=== PATIENT | female | born 1990 | race Caucasian/White ===

== ENCOUNTER → 2017-04-01 | Outpatient (CLI) | payer BC ==
--- NOTE | 2017-06-03 15:21 | RAD ---
Patient Location : OUT-PATIENT Indications Varicose Veins Grayscale images of the bilateral lower extremity saphenofemoral junctions and limited evaluation of the great saphenous veins on goldsmith scale images does not reveal any evidence of thrombus. On the right the great saphenous vein and small saphenous veins do not show any evidence of reflux. On the left, the great saphenous vein has a reflux of 4.4 seconds throughout its course. The great saphenous vein measures approximately 9 mm in greatest dimension. The left small saphenous vein does not have any significant reflux. Critical Notification Critical Value: No <Conclusion> 1. Positive for reflux in the left greater saphenous vein. Signed by : Jovany Monique, Electronically Approved : 04/02/2017 15:13:33 KRYSTEN
== END | disposition home or self-care (01) ==
LOC: US 09:51
PROVIDERS: ATTEND Internal Medicine Cardiovascular Disease
DX: I83.93 Asymptomatic varicose veins of bilateral lower extremities (principal); K21.9 Gastro-esophageal reflux disease without esophagitis
CPT/HCPCS: 93970

== ENCOUNTER → 2017-06-04 | Outpatient (CLI) | payer BC ==
--- NOTE | 2017-06-05 07:43 | RAD ---
MR#: [id number] Date of Study: 06/04/2017 Ordering Physician: STANLEY BYERS, Referring Physician: STANLEY BYERS, Tech: Ya Soria RDMS, RVT, RTR APPROVED REPORT Patient Location: OUT-PATIENT Indications Grayscale images of the left common femoral vein and saphenofemoral junction do not reveal any eviden ce of thrombus. The left great saphenous vein appears to be noncompressible with thrombus consistent with recent history of ablation. The superficial femoral vein, popliteal veins and below-knee veins do not reveal any evidence of thro mbus and appear to be compressible with normal flow. Critical Notification Critical Value: No <Conclusion> 1. Negative for DVT in the left lower extremity. Status post successful great saphenous vein ablation . Signed by : Jovany Monique, Electronically Approved : 06/05/2017 07:42:54
== END | disposition home or self-care (01) ==
LOC: US 10:29
PROVIDERS: ATTEND Internal Medicine Cardiovascular Disease
DX: I87.2 Venous insufficiency (chronic) (peripheral) (principal)
CPT/HCPCS: 93971

== ENCOUNTER 2017-12-08 22:32 | Emergency (ER) | payer BC ==
[~2017-12-08] VITALS: Ht 167.6 cm; Wt 61.5 kg
--- NOTE | 2017-12-08 22:40 | ED.ADGEN ---
Past History Past Medical History: UTI, Other Adult General Chief Complaint Chief Complaint ".. I just feel bad all over.. chills.. fever, achy... sore throat... " HPI HPI Patient is a 27 year old female who presents with above hx and complaints of fever, chills, myalgia, arthralgia and sore throat. Pt. is normally healthy. No recent travel. Son recently had a viral illness. Patient denies any history of immunosuppression. Review of Systems Review of Systems Constitutional: History of fever or chills [] Eyes: Denies change in visual acuity, redness, or eye pain [] HENT: History of mild nasal congestion, severe sore throat , otitis Respiratory: Denies cough or shortness of breath [] Cardiovascular: No additional information not addressed in HPI [] GI: Denies abdominal pain, nausea, vomiting, bloody stools or diarrhea [] : Denies dysuria or hematuria [] Musculoskeletal: Denies back pain or joint pain [] Integument: Denies rash or skin lesions [] Neurologic: Denies headache, focal weakness or sensory changes [] Endocrine: Denies polyuria or polydipsia [] All other systems were reviewed and found to be within normal limits, except as documented in this note. Family History Family History Son recently sick Current Medications Current Medications Current Medications Medications (Trade) Dose Ordered Sig/Nina Start Time Stop Time Status Last Admin Dose Admin Ceftriaxone Sodium 1 gm/ Sodium Chloride 50 ml @ 100 mls/hr 1X ONCE 12/09/17 00:30 12/09/17 00:59 UNV Ceftriaxone Sodium (Rocephin Im) 1 gm 1X ONCE 12/09/17 00:15 12/09/17 00:16 DC Ceftriaxone Sodium (Rocephin) 1 gm ONCE ONCE 12/09/17 00:30 12/09/17 00:31 DC 12/09/17 00:36 1 GM Diphenhydramine HCl (Benadryl) 25 mg 1X ONCE 12/09/17 00:15 12/09/17 00:16 DC 12/09/17 00:36 25 MG Hydrocodone Bitartrate/ Ibuprofen (Vicoprofen 7.5-200) 2 tab 1X ONCE 12/09/17 00:15 12/09/17 00:16 DC 12/09/17 00:36 2 TAB Lactated Ringer's 1,000 ml @ 1,000 mls/hr Q1H 12/08/17 23:30 12/09/17 00:29 DC 12/08/17 23:51 1,000 MLS/HR Prednisone (Prednisone) 60 mg 1X ONCE 12/09/17 00:30 12/09/17 00:31 DC 12/09/17 00:36 60 MG Allergies Allergies Allergies Coded Allergies Type Severity Reaction Last Updated Verified No Known Drug Allergies 12/08/17 No Physical Exam Physical Exam Constitutional: Well developed, well nourished, in acute distress, non-toxic appearance. [] HENT: Normocephalic, atraumatic, bilateral external ears normal, oropharynx moist, ejected pharynx no oral exudates, nose mildly injected turbinates, injected TMs Eyes: PERRLA, EOMI, conjunctiva normal, no discharge. [] Neck: Normal range of motion, no tenderness, supple, no stridor. [] Adenopathy anterior cervical chain Cardiovascular:Heart rate regular rhythm, no murmur [] Lungs & Thorax: Bilateral breath sounds clear to auscultation [] Abdomen: Bowel sounds normal, soft, no tenderness, no masses, no pulsatile masses. [] Skin: Warm, dry, no erythema, no rash. [] Back: No tenderness, no CVA tenderness. [] Extremities: No tenderness, no cyanosis, no clubbing, ROM intact, no edema. [] Neurologic: Alert and oriented X 3, normal motor function, normal sensory function, no focal deficits noted. [] Psychologic: Affect anxious, judgement normal, mood normal. [] Current Patient Data Lab Results Laboratory Tests Test 12/08/17 22:15 12/08/17 22:59 12/08/17 23:34 12/08/17 23:47 POC Urine HCG, Qualitative hcg negative (Negative) Urine Collection Type Unknown Urine Color Yellow Urine Clarity Clear Urine pH 5.5 Urine Specific [place] 1.020 Urine Protein Neg (NEG-TRACE) Urine Glucose (UA) Neg mg/dL (NEG) Urine Ketones (Stick) Neg mg/dL (NEG) Urine Blood Mod (NEG) Urine Nitrite Neg (NEG) Urine Bilirubin Neg (NEG) Urine Urobilinogen Dipstick 1 mg/dL (0.2 mg/dL) Urine Leukocyte Esterase Trace (NEG) Urine RBC Occ /HPF (0-2) Urine WBC 1-4 /HPF (0-4) Urine Squamous Epithelial Cells None /LPF Urine Bacteria 0 /HPF (0-FEW) Urine Opiates Screen Neg (NEG) Urine Methadone Screen Neg (NEG) Urine Barbiturates Neg (NEG) Urine Phencyclidine Screen Neg (NEG) Urine Amphetamine/Methamphetamine Neg (NEG) Urine Benzodiazepines Screen Neg (NEG) Urine Cocaine Screen Neg (NEG) Urine Cannabinoids Screen Neg (NEG) Urine Ethyl Alcohol Neg (NEG) Group A Streptococcus Rapid Positive (NEGATIVE) White Blood Count 10.5 x10^3/uL (4.0-11.0) Red Blood Count 4.34 x10^6/uL (3.50-5.40) Hemoglobin 14.2 g/dL (12.0-15.5) Hematocrit 39.7 % (36.0-47.0) Mean Corpuscular Volume 91 fL (79-100) Mean Corpuscular Hemoglobin 33 pg (25-35) Mean Corpuscular Hemoglobin Concent 36 g/dL (31-37) Red Cell Distribution Width 13.6 % (11.5-14.5) Platelet Count 135 x10^3/uL (140-400) L Neutrophils (%) (Auto) 89 % (31-73) H Lymphocytes (%) (Auto) 5 % (24-48) L Monocytes (%) (Auto) 5 % (0-9) Eosinophils (%) (Auto) 0 % (0-3) Basophils (%) (Auto) 0 % (0-3) Neutrophils # (Auto) 9.3 x10^3uL (1.8-7.7) H Lymphocytes # (Auto) 0.5 x10^3/uL (1.0-4.8) L Monocytes # (Auto) 0.5 x10^3/uL (0.0-1.1) Eosinophils # (Auto) 0.0 x10^3/uL (0.0-0.7) Basophils # (Auto) 0.0 x10^3/uL (0.0-0.2) Erythrocyte Sedimentation Rate Pending D-Dimer (Marjorie) 0.51 mg/L (0.00-0.50) H Sodium Level 137 mmol/L (136-145) Potassium Level 3.5 mmol/L (3.5-5.1) Chloride Level 102 mmol/L (98-107) Carbon Dioxide Level 27 mmol/L (21-32) Anion Gap 8 (6-14) Blood Urea Nitrogen 16 mg/dL (7-20) Creatinine 1.0 mg/dL (0.6-1.0) Estimated GFR (Cockcroft-Gault) 65.6 Glucose Level 93 mg/dL (70-99) Calcium Level 9.1 mg/dL (8.5-10.1) Magnesium Level 1.5 mg/dL (1.8-2.4) L Total Bilirubin 0.8 mg/dL (0.2-1.0) Direct Bilirubin 0.2 mg/dL (0.0-0.2) Aspartate Amino Transferase (AST) 16 U/L (15-37) Alanine Aminotransferase (ALT) 19 U/L (14-59) Alkaline Phosphatase 55 U/L (46-116) Total Protein 7.5 g/dL (6.4-8.2) Albumin 3.9 g/dL (3.4-5.0) EKG EKG [] Radiology/Procedures Radiology/Procedures [] Course & Med Decision Making Course & Med Decision Making Pertinent Labs and Imaging studies reviewed. (See chart for details). Pt. reports marked improvement of symptoms at time of discharge. Push fruit juices. Get adequate rest. Take Tylenol and ibuprofen for pain. Gargle with Listerine 4 times a day. Take Keflex 500 mg 3 times a day. Follow- up primary care. Return if any concerns. [] Final Impression Final Impression 1. Weakness[] 2. Strept. Pharyngitis 3. Hypomagnesium 4. UTI Dragon Disclaimer Dragon Disclaimer This electronic medical record was generated, in whole or in part, using a voice recognition dictation system. THEODORA GONZALEZ MD Dec 08, 2017 22:40
[2017-12-08 23:17] LABS: BACTERIA,URINE 0 /HPF (0-FEW); BILIRUBIN,URINE NEG (NEG); CLARITY,URINE CLEAR; COLOR,URINE YELLOW; GLUCOSE,URINE NEG (NEG); NITRITE,URINE NEG (NEG); RBC,URINE OCC /HPF (0-2); UROBILINOGEN,URINE 1 mg/dL (0.2 mg/dL)
[2017-12-08 23:23] LABS: BARBITURATES NEG (NEG); BENZODIAZEPINES NEG (NEG); CANNABINOIDS NEG (NEG); COCAINE NEG (NEG); METHADONE NEG (NEG); OPIATES NEG (NEG); PHENCYCLIDINE NEG (NEG)
[2017-12-08 23:27] LABS: AMPHETAMINE/METHAMPHETAMINE NEG (NEG)
[2017-12-08] MEDS ORDERED: IV RINGERS SOLUTION,LACTATED 1,000 ML IV SCH (23:30)
[2017-12-08] MEDS ORDERED: CEPH-264 PO (23:41)
[2017-12-09] MEDS ORDERED: diphenhydrAMINE HCL 25 MG CAPSULE PO ONE (00:15)
[2017-12-09] MEDS ORDERED: HYDROcodon/IBUPROFEN 7.5/200MG 1 TAB TABLET PO ONE (00:15)
[2017-12-09] MEDS ORDERED: cefTRIAXone IM 1 GM VIAL IM ONE (00:15)
[2017-12-09 00:27] LABS: BASO % 0 % (0-3); EOS % 0 % (0-3); HEMATOCRIT 39.7 % (36.0-47.0); HEMOGLOBIN 14.2 g/dL (12.0-15.5); LYMPH # 0.5 x10^3/uL (1.0-4.8); LYMPH % 5 % (24-48); MEAN CORPUSCULAR HEMOGLOBIN 33 pg (25-35); MEAN CORPUSCULAR HGB CONC 36 g/dL (31-37); MEAN CORPUSCULAR VOLUME 91 fL (79-100); MONO # 0.5 x10^3/uL (0.0-1.1); MONO % 5 % (0-9); NEUT # 9.3 x10^3uL (1.8-7.7); NEUT % 89 % (31-73); PLATELET COUNT 135 x10^3/uL (140-400); RED BLOOD COUNT 4.34 x10^6/uL (3.50-5.40); RED CELL DISTRIBUTION WIDTH 13.6 % (11.5-14.5); WHITE BLOOD COUNT 10.5 x10^3/uL (4.0-11.0)
[2017-12-09] MEDS ORDERED: cefTRIAXone IV Push 1 GM VIAL. IVP ONE (00:30)
[2017-12-09] MEDS ORDERED: predniSONE 20 MG TABLET PO ONE (00:30)
[2017-12-09 00:38] LABS: ALBUMIN 3.9 g/dL (3.4-5.0); CALCIUM 9.1 mg/dL (8.5-10.1); DIRECT BILIRUBIN 0.2 mg/dL (0.0-0.2); GFR 65.6; MAGNESIUM 1.5 mg/dL (1.8-2.4); POTASSIUM 3.5 mmol/L (3.5-5.1); TOTAL BILIRUBIN 0.8 mg/dL (0.2-1.0); TOTAL PROTEIN 7.5 g/dL (6.4-8.2)
[2017-12-09 00:40] VITALS: BP 115/66
[2017-12-09 01:23] LABS: SEDIMENTATION RATE 8 (0-25)
== END 2017-12-09 00:58 | disposition home or self-care (01) ==
LOC: ER 22:32
DX: J02.0 Streptococcal pharyngitis (principal); B95.5 Unspecified streptococcus as the cause of diseases classified elsewhere; R53.1 Weakness; N39.0 Urinary tract infection, site not specified; E83.42 Hypomagnesemia; Z87.440 Personal history of urinary (tract) infections
CPT/HCPCS: 36415; 80048; 80076; 80307; 81001; 81025; 83735; 84443; 85025; 85379; 85651; 87086; 87880; 96374; 99284; J0696; J7120; J7512; Q0163; G0479